=== PATIENT | male | born 1975 | race Caucasian/White ===

== ENCOUNTER 2023-06-18 18:02 | Emergency (ER) | payer OTHER ==
[~2023-06-18] VITALS: Ht 165.1 cm; Wt 170.6 kg
[2023-06-18 18:10] VITALS: BP 136/73; PULSE 89; RESP 18; TEMP 97.8; O2SAT 97
[2023-06-18] MEDS ORDERED: KETOROLAC 30 MG/ML VIAL IM ONE (19:00)
[2023-06-18] MEDS ORDERED: CYCL-711 PO (19:59)
[2023-06-18] MEDS ORDERED: LID5T TP (19:59)
[2023-06-18] MEDS ORDERED: IBUP-2218 PO (19:59)
[2023-06-18] MEDS ORDERED: KETOROLAC 30 MG/ML VIAL ONE (21:16)
== END 2023-06-18 21:20 | disposition home or self-care (01) ==
LOC: MED 18:02
DX: S46.811A Strain of other muscles, fascia and tendons at shoulder and upper arm level, right arm, initial encounter (principal); R93.89 Abnormal findings on diagnostic imaging of other specified body structures; V49.88XA Car occupant (driver) (passenger) injured in other specified transport accidents, initial encounter; Y93.89 Activity, other specified; Y92.89 Other specified places as the place of occurrence of the external cause; Y99.8 Other external cause status
CPT/HCPCS: 73030; 73130; 96372; 99284; J1885